=== PATIENT | male | born 1985 | race Caucasian/White ===

== ENCOUNTER 2022-02-14 15:44 | Emergency (ER) | payer MEDICAID ==
[~2022-02-14] VITALS: Ht 185.4 cm; Wt 107.0 kg
[2022-02-14 16:01] VITALS: BP 130/94
[2022-02-14] MEDS ORDERED: KETOROLAC 15MG/ML VIAL IV ONE (18:30)
[2022-02-14] MEDS ORDERED: CEFTRIAXONE 2 G PREMIX 50 ML IV ONE (18:30)
[2022-02-14] MEDS ORDERED: DEXAMETHASONE 4MG/ML 1ML VIAL IV ONE (18:30)
[2022-02-14] MEDS ORDERED: CLINDAMYCIN 600 MG in DEXTROSE 5% WATER 50 ML IV ONE (18:30)
[2022-02-14] MEDS ORDERED: SODIUM CHLORIDE 0.9% 1,000 ML IV ONE (18:30)
[2022-02-14 19:22] LABS: BASOPHILS % 0.5 % (0.0-2.0); EOSINOPHILS % 0.1 % (0.0-5.0); HEMATOCRIT. 49.2 % (42.0-52.0); HEMOGLOBIN. 16.6 g/dL (14.0-18.0); LYMPHOCYTES % 9.5 % (20.0-50.0); MEAN CORPUSCULAR HEMOGLOBIN 29.8 pg (28.0-32.0); MEAN CORPUSCULAR VOLUME 88.1 fL (80.0-94.0); MEAN PLATELET VOLUME 8.1 fl (7.4-10.4); MONOCYTES % 6.5 % (2.0-8.0); NEUTROPHILS % 83.4 % (40.0-76.0); PLATELET 291 x1000/uL (130-400); RED BLOOD CELL COUNT 5.59 mill/uL (4.7-6.1); RED CELL DISTRIBUTION WIDTH 13.8 % (11.6-14.6)
[2022-02-14 19:28] LABS: PROTHROMBIN TIME 10.8 sec (9.6-11.0)
[2022-02-14] MEDS ORDERED: CEFTRIAXONE 2 G in DEXTROSE 5% WATER 50 ML IV NR (20:00)
[2022-02-14] MEDS ORDERED: CLINDAMYCIN 600MG PREMIX 50 ML IV NR (20:45)
[2022-02-14] MEDS ORDERED: IOHEXOL-300 100 ML BOTTLE ONE (20:53)
[2022-02-14 22:19] LABS: CHLORIDE 102 mEq/L (98-107)
[2022-02-14] MEDS ORDERED: P20 MT (22:52)
[2022-02-14] MEDS ORDERED: CLIN-194 MT (22:52)
== END 2022-02-15 01:15 | disposition home or self-care (01) ==
LOC: ER 15:44
DX: J03.90 Acute tonsillitis, unspecified (principal); Z88.6 Allergy status to analgesic agent; Z98.890 Other specified postprocedural states
CPT/HCPCS: 36415; 70491; 80048; 85025; 85610; 96361; 96365; 96366; 96375; 99285; J0696; J1100; J3490; J7030; J7060; Q9967; J1885

== ENCOUNTER 2023-01-27 14:00 | Emergency (ER) | payer MEDICAID ==
[~2023-01-27] VITALS: Ht 190.5 cm; Wt 111.0 kg
[~2023-01-27 14:00] MED LIST: CLIN-194 MT; P20 MT
[2023-01-27 14:22] VITALS: BP 143/99; PULSE 105; RESP 20; TEMP 98.1; O2SAT 96
[2023-01-27] MEDS ORDERED: AMOX1TAB16 MT (16:05)
[2023-01-27] MEDS ORDERED: NAPR-681 MT (16:05)
[2023-01-27] MEDS ORDERED: P20 MT (16:05)
== END 2023-01-27 16:58 | disposition home or self-care (01) ==
LOC: ER 14:00
DX: J03.00 Acute streptococcal tonsillitis, unspecified (principal); B34.9 Viral infection, unspecified; Z98.890 Other specified postprocedural states; Z88.6 Allergy status to analgesic agent
CPT/HCPCS: 99283

== ENCOUNTER 2023-03-23 17:27 | Emergency (ER) | payer MEDICAID ==
[~2023-03-23] VITALS: Ht 188 cm; Wt 102.0 kg
[~2023-03-23 17:27] MED LIST changes: +AMOX1TAB16 MT; +NAPR-681 MT
[2023-03-23 17:45] VITALS: BP 138/92; RESP 16; TEMP 98.8; O2SAT 98
[2023-03-23 18:00] VITALS: PULSE 104
[2023-03-23] MEDS ORDERED: IBUPROFEN 800MG TABLET PO ONE (20:00)
[2023-03-23] MEDS ORDERED: TOPUD PO (21:14)
== END 2023-03-23 23:43 | disposition home or self-care (01) ==
LOC: ER 17:27
DX: M79.18 Myalgia, other site (principal); Z98.890 Other specified postprocedural states; V99.XXXA Unspecified transport accident, initial encounter; Y93.89 Activity, other specified; Y92.89 Other specified places as the place of occurrence of the external cause; Y99.8 Other external cause status
CPT/HCPCS: 71101; 74176; 99284